=== PATIENT | female | born 1985 | race Caucasian/White ===

== ENCOUNTER 2018-01-09 23:10 | Inpatient (IN) | payer BC ==
[2018-01-09] MEDS: Lactated Ringer's 1,000 ML IV SCH (23:45)
[2018-01-09] MEDS ORDERED: HYDROcodone/Acetaminophen 5/325 mg Tablet PO PRN ×2 (23:45)
[2018-01-09] MEDS ORDERED: Misoprostol 200 MCG TAB RC PRN (23:45)
[2018-01-09] MEDS ORDERED: NS / Oxytocin 40 units/1000ml 1,000 ML IV SCH (23:45)
[2018-01-09] MEDS ORDERED: Methylergonovine 0.2 MG/ML VIAL IM PRN (23:45)
[2018-01-09] MEDS ORDERED: DISCONTINUE ALL PREVIOUS NARCOTICS FS SCH (23:45)
[2018-01-09] MEDS ORDERED: Lidocaine 1% (PF) 30 ML VIAL SC PRN (23:45)
[2018-01-09] MEDS ORDERED: Ibuprofen 800 MG TAB PO PRN (23:45)
[2018-01-09] MEDS ORDERED: NS w/ Oxytocin 10 units 500 ML IV SCH ×2 (23:45)
[2018-01-09] MEDS ORDERED: Bupivacaine 0.5% 20 ML, fentaNYL Citrate/PF 400 MCG in Sodium Chloride 0.9% 72 ML EPIDURAL SCH (23:45)
[2018-01-09] MEDS ORDERED: Carboprost 250 MCG/ML AMP IM PRN (23:45)
[2018-01-09] MEDS ORDERED: Ondansetron HCl/PF 4 MG/2 ML Vial IVP PRN (23:58)
[2018-01-09] MEDS ORDERED: Promethazine HCl 25 MG/ML VIAL IM PRN (23:58)
[2018-01-09 23:59] VITALS: BMI 24.4
[2018-01-09] MEDS ORDERED: Butorphanol Tartrate 1 MG/ML VIAL SLOW IVP PRN (23:59)
[2018-01-10 00:07] LABS: Hemoglobin 11.7 g/dL (12.0-16.0); Mean Corpuscular HGB CONC 34.3 g/dL (32.0-36.0); Mean Corpuscular Hemoglobin 30.1 pg (27.0-31.0); Mean Corpuscular Volume 87.9 fl (81.0-99.0); Mean Platelet Volume 7.8 fL (7.4-10.4); Platelet Count 199 thou/uL (130-400); RBC Distribution Width 12.1 % (11.5-14.5); Red Blood Cell (RBC) Count 3.88 mill/uL (4.20-5.40); White Blood Cell (WBC) Count 11.1 thou/uL (4.8-10.8)
[2018-01-10 00:41] LABS: HBSAg Index 0.24 S/CO (0-0.99); Hep B Surf Ag Non-Reactive S/CO (NonReactive); Syphilis Antibody Nonreactive (Nonreactive); Syphilis Antibody Index 0.23 S/CO (<1.00 Non-Reactive)
[2018-01-10] MEDS: Lactated Ringer's 1,000 ML IV SCH (01:00)
[2018-01-10] MEDS ORDERED: Ondansetron HCl/PF 4 MG/2 ML Vial IVP PRN (01:13)
[2018-01-10] MEDS ORDERED: Lactated Ringer's 500 ML IV PRN (01:13)
[2018-01-10] MEDS ORDERED: Naloxone HCl 0.4 mg/ml Vial IVP PRN ×2 (01:13)
[2018-01-10] MEDS ORDERED: Acetaminophen 325 MG TAB PO PRN (01:13)
[2018-01-10] MEDS ORDERED: Eucerin (Mineral Oil/Petrolatum,White) 30 gm Jar TOP PRN (01:13)
[2018-01-10] MEDS ORDERED: diphenhydrAMINE 50 MG/ML VIAL IVP PRN (01:13)
[2018-01-10] MEDS ORDERED: ePHEDrine/0.9% NaCl/PF SYRINGE 50 mg/10 ml SLOW IVP PRN (01:13)
[2018-01-10] MEDS ORDERED: Promethazine HCl 25 MG/ML VIAL IM PRN (01:13)
[2018-01-10] MEDS ORDERED: Communication Order-Pharmacy FS SCH (01:15)
[2018-01-10] MEDS ORDERED: Fentanyl 4mcg/Marcaine 0.1% Cassette 100 ML EPIDURAL SCH (01:15)
[2018-01-10] MEDS ORDERED: Calcium Carbonate 500 MG ChewTAB PO PRN ×2 (02:48→02:49)
[2018-01-10] MEDS ORDERED: HYDROcodone/Acetaminophen 5/325 mg Tablet PO PRN (07:10)
[2018-01-10] MEDS ORDERED: Lanolin Ointment 7 GM TUBE TOP PRN (07:10)
[2018-01-10] MEDS ORDERED: Milk Of Magnesia 30 ML UDCUP PO PRN (07:10)
[2018-01-10] MEDS ORDERED: NS / Oxytocin 40 units/1000ml 1,000 ML IV SCH (07:10)
[2018-01-10] MEDS ORDERED: diphenhydrAMINE 25 MG CAP PO PRN (07:10)
[2018-01-10] MEDS ORDERED: Bisacodyl 10 MG SUPP PR PRN (07:10)
[2018-01-10] MEDS ORDERED: Preparation H Ointment 28 GM TUBE PR PRN (07:10)
[2018-01-10] MEDS ORDERED: Bupivacaine HCl 0.5%/Epinephrine 1:200,000/PF 30 ml Vial ONE (08:28)
[2018-01-10] MEDS: Ibuprofen 800 MG TAB PO SCH ×2 (09:45→16:44)
[2018-01-10] MEDS: Ferrous Sulfate 325 MG TAB PO SCH ×2 (09:45→17:56)
[2018-01-10] MEDS: Docusate Calcium (SURFAK) 240 MG CAP PO SCH ×2 (09:45→21:54)
[2018-01-11] MEDS: Ibuprofen 800 MG TAB PO SCH ×3 (00:08→16:07)
[2018-01-11 08:38] VITALS: BP 113/66; TEMP 97.7
[2018-01-11] MEDS: Docusate Calcium (SURFAK) 240 MG CAP PO SCH (09:39)
[2018-01-11] MEDS: Ferrous Sulfate 325 MG TAB PO SCH ×2 (09:40→18:33)
--- NOTE | 2018-01-11 18:05 | PDOC.PP ---
Post Progress Note Post Day #: 1 Subjective: Doing well. well. NO complaints. Lochia normal. PO intake tolerated: yes Flatus: yes Ambulation: yes Vital Signs (12 hours) Temp Pulse Resp BP 01/11/18 08:37 97.7 F 72 18 113/66 01/11/18 08:10 97.7 F 72 18 Weight Weight 175 lb - Physical Examination General: NAD Cardiovascular: no m/r/g, RRR Respiratory: clear to auscultation bilaterally, non-labored breathing Abdominal: + bowel sounds, lochia, no distention, appropriately TTP Result Diagrams: 01/09/18 23:57 Additional Labs: Post Labs Blood Type O NEGATIVE 01/09/18 23:57 Hep Bs Antigen Non-Reactive S/CO (NonReactive) 01/09/18 23:57 (1) Vaginal delivery Code(s): O80 - ENCOUNTER FOR FULL-TERM UNCOMPLICATED DELIVERY Status: Acute - Assessment/Plan PPD #1 Routine care D/C home F/U in 6 weeks
== END 2018-01-11 17:58 | disposition home or self-care (01) | DRG 775 ==
LOC: L&D/OP 23:10 → L&D 23:42 → 3SW 01-10 06:31
PROVIDERS: ADMIT Family Medicine; ATTEND Family Medicine
PROC: 10E0XZZ Delivery of Products of Conception, External Approach (ICD-10-PCS; principal; 2018-01-10)
PROC: 0HQ9XZZ Repair Perineum Skin, External Approach (ICD-10-PCS; 2018-01-10)
DX: O70.0 First degree perineal laceration during delivery (principal); Z3A.40 40 weeks gestation of pregnancy; Z37.0 Single live birth
CPT/HCPCS: 36415; 51702; 85461; 86780; 86850; 86870; 86900; 86901; 87340; 90384; 96372; 99285; A4216; J0670; J3010; J3490; J7050